=== PATIENT | female | born 1995 | race Caucasian/White ===

== ENCOUNTER 2020-06-16 20:15 | Emergency (ER) | payer OTHER ==
[~2020-06-16] VITALS: Ht 165.1 cm; Wt 117.9 kg
[2020-06-16] MEDS ORDERED: BUPIVACAINE HCL 0.25% 10ML MPF VIAL INJ ONE (21:00)
[2020-06-16] MEDS ORDERED: TETANUS/DIPHTHERIA TOX ADULT 0.5 ML SYR IM ONE (21:00)
[2020-06-16] MEDS ORDERED: BACITRACIN ZINC 0.9GM TP ONE (22:30)
[2020-06-16 22:58] VITALS: BP 121/72
== END 2020-06-16 23:19 | disposition home or self-care (01) ==
LOC: ER 20:46
DX: S61.211A Laceration without foreign body of left index finger without damage to nail, initial encounter (principal); W26.0XXA Contact with knife, initial encounter; Y93.G3 Activity, cooking and baking; Y92.000 Kitchen of unspecified non-institutional (private) residence as the place of occurrence of the external cause
CPT/HCPCS: 90471; 90714; 99283

== ENCOUNTER 2023-10-06 13:30 | Inpatient (IN) | payer BC, OTHER ==
[~2023-10-06] VITALS: Ht 167.6 cm; Wt 90.7 kg
[2023-10-06 13:57] LABS: BASOPHILS # (AUTO) 0.1 (0.0-0.1); BASOPHILS % 1.1 % (0.0-1.0); EOSINOPHILS # (AUTO) 0.1 (0.0-0.4); EOSINOPHILS % 1.4 % (0.0-6.0); HEMATOCRIT 42.9 % (34.2-44.1); HEMOGLOBIN 14.1 g/dL (12.0-16.0); LYMPHOCYTES # (AUTO) 1.2 (1.0-3.2); LYMPHOCYTES % 20.8 % (18.0-39.1); MEAN CORPUSCULAR HEMOGLOBIN 28.9 pg (28-32); MEAN CORPUSCULAR HGB CONC 32.9 g/dL (31-35); MEAN CORPUSCULAR VOLUME 87.9 fL (81-99); MONOCYTES # (AUTO) 0.6 (0.2-0.8); MONOCYTES % 10.5 % (4.4-11.3); NEUTROPHILS # (AUTO) 3.7 (2.1-6.9); PLATELET COUNT 273 x10e3/uL (140-360); RED BLOOD COUNT 4.88 x10e6/uL (3.6-5.1); RED CELL DISTRIBUTION WIDTH 12.9 % (11.7-14.4); WHITE BLOOD COUNT 5.63 x10e3/uL (4.8-10.8)
[2023-10-06] MEDS: SODIUM CHLORIDE 0.9% 1000ML 1,000 ML IV STA (14:01)
[2023-10-06] MEDS: DICYCLOMINE HCL 20 MG/2 ML VIAL IM ONE (14:02)
[2023-10-06] MEDS: ONDANSETRON HCL INJ 2MG/ML 2ML 2 MG/ML VIAL IV PRN (14:02)
[2023-10-06 14:08] LABS: AMORPHOUS SEDIMENT,URINE MANY (FEW); BACTERIA,URINE MODERATE /HPF; BILIRUBIN,URINE MODERATE (NEGATIVE); CLARITY,URINE TURBID (CLEAR); COLOR,URINE YELLOW (YELLOW); EPITHELIAL CELLS,URINE FEW /LPF; GLUCOSE, URINE NEGATIVE (NEGATIVE); KETONES,URINE NEGATIVE (NEGATIVE); LEUKOCYTE ESTERASE ,URINE NEGATIVE (NEGATIVE); NITRITE,URINE NEGATIVE (NEGATIVE); PH,URINE 8.5 (5 - 7); PROTEIN,URINE DIPSTICK NEGATIVE (NEGATIVE); RBC,URINE 0-5 /HPF (0-5); WBC,URINE (MAN) 0-5 /HPF (0-5)
[2023-10-06 14:17] LABS: ALBUMIN 4.4 g/dL (3.5-5.0); ALBUMIN/GLOBULIN RATIO 1.5 (0.8-2.0); ANION GAP 13.7 mmol/L (8-16); CALCIUM 9.1 mg/dL (8.4-10.2); CREATININE, SERUM 0.88 mg/dL (0.57-1.11); POTASSIUM 3.7 mmol/L (3.5-5.1); TOTAL PROTEIN 7.4 g/dL (6.5-8.1)
[2023-10-06] MEDS ORDERED: IOPAMIDOL 370 MG/ML 100 ML INFUS..BTL INJ ONE (15:38)
[2023-10-06] MEDS ORDERED: ONDANSETRON HCL INJ 2MG/ML 2ML 2 MG/ML VIAL IV PRN (17:45)
[2023-10-06] MEDS: SODIUM CHLORIDE 0.9% 1000ML 1,000 ML IV SCH (17:52)
[2023-10-06 18:03] VITALS: PULSE 80; RESP 17; TEMP 98.4
[2023-10-06 20:00] VITALS: BP 106/77; PULSE 62; RESP 18; TEMP 98.3; O2SAT 100
[2023-10-07] VITALS (9 sets, daily range): BP systolic 104–126; BP diastolic 57–77; PULSE 57–81; RESP 16–20; TEMP 98.1–98.8; O2SAT 95–100
[2023-10-07] MEDS: Morphine 4mg INJECTION 4 MG/ML INJ IV PRN (01:00)
[2023-10-07 08:03] LABS: BASOPHILS # (AUTO) 0.1 (0.0-0.1); EOSINOPHILS # (AUTO) 0.2 (0.0-0.4); HEMATOCRIT 37.6 % (34.2-44.1); HEMOGLOBIN 12.2 g/dL (12.0-16.0); LYMPHOCYTES # (AUTO) 1.7 (1.0-3.2); LYMPHOCYTES % 28.8 % (18.0-39.1); MEAN CORPUSCULAR HEMOGLOBIN 29.5 pg (28-32); MEAN CORPUSCULAR HGB CONC 32.4 g/dL (31-35); MEAN CORPUSCULAR VOLUME 90.8 fL (81-99); MONOCYTES # (AUTO) 0.5 (0.2-0.8); MONOCYTES % 7.8 % (4.4-11.3); NEUTROPHILS # (AUTO) 3.5 (2.1-6.9); NEUTROPHILS % 59.1 % (38.7-80.0); PLATELET COUNT 224 x10e3/uL (140-360); RED BLOOD COUNT 4.14 x10e6/uL (3.6-5.1); RED CELL DISTRIBUTION WIDTH 13.2 % (11.7-14.4); WHITE BLOOD COUNT 5.91 x10e3/uL (4.8-10.8)
[2023-10-07 08:24] LABS: ALBUMIN 3.6 g/dL (3.5-5.0); ALBUMIN/GLOBULIN RATIO 1.6 (0.8-2.0); ANION GAP 13.4 mmol/L (8-16); BILIRUBIN,TOTAL 1.5 mg/dL (0.2-1.2); CALCIUM 8.6 mg/dL (8.4-10.2); CREATININE, SERUM 0.75 mg/dL (0.57-1.11); TOTAL PROTEIN 5.8 g/dL (6.5-8.1)
[2023-10-07 08:30] LABS: POTASSIUM 3.4 mmol/L (3.5-5.1)
[2023-10-07] MEDS ORDERED: ACETAMINOPHEN/ASPIRIN/CAFFEINE 1 EA TAB PO PRN (11:45)
[2023-10-07] MEDS: POTASSIUM CHLORIDE 10MEQ EA PO ONE (12:27)
[2023-10-07] MEDS: ACETAMIN/BUTALBITAL/CAFFEINE TAB PO ONE (12:28)
[2023-10-07] MEDS: PROMETHAZINE 25MG/ NS 50ML (IV) IV PRN (18:19)
[2023-10-07] MEDS: ACETAMIN/BUTALBITAL/CAFFEINE TAB PO PRN (18:26)
[2023-10-08] VITALS: BP 102/74; PULSE 60; RESP 16; TEMP 98.4; O2SAT 100
[2023-10-08 04:00] VITALS: BP 107/55; PULSE 66; RESP 17; TEMP 98.2; O2SAT 100
[2023-10-08 08:05] LABS: ALBUMIN 3.6 g/dL (3.5-5.0); ALBUMIN/GLOBULIN RATIO 1.4 (0.8-2.0); ANION GAP 13.7 mmol/L (8-16); BILIRUBIN,TOTAL 0.8 mg/dL (0.2-1.2); CALCIUM 8.8 mg/dL (8.4-10.2); CREATININE, SERUM 0.74 mg/dL (0.57-1.11); POTASSIUM 3.7 mmol/L (3.5-5.1); TOTAL PROTEIN 6.1 g/dL (6.5-8.1)
[2023-10-08 08:13] VITALS: BP 118/68; PULSE 66; RESP 18; TEMP 98.1; O2SAT 100
[2023-10-08 11:33] VITALS: BP 106/51; PULSE 74; RESP 18; TEMP 97.9; O2SAT 100
[2023-10-08 16:07] VITALS: BP 113/60; PULSE 88; RESP 19; TEMP 97.9; O2SAT 100
[2023-10-08 20:00] VITALS: BP 117/44; PULSE 95; RESP 20; TEMP 98; O2SAT 93
[2023-10-09] VITALS (10 sets, daily range): BP systolic 99–125; BP diastolic 41–73; PULSE 60–96; RESP 16–20; TEMP 98.2–98.8; O2SAT 98–100
[2023-10-09] MEDS ORDERED: BUPIVACAINE HCL 0.5% INJ 30 ML VIAL INJ ONE (10:44)
[2023-10-09] MEDS ORDERED: MIDAZOLAM HCL 2 MG/2 ML VIAL ONE (11:45)
[2023-10-09] MEDS ORDERED: FENTANYL CITRATE/PF 100MCG/2 ML INJ ONE (11:45)
[2023-10-09] MEDS ORDERED: ESMOLOL HCL 100MG/10ML 10 MG/ML VIAL ONE (12:34)
[2023-10-09] MEDS ORDERED: PROPOFOL IV EMULSION 10 MG/ML 20 ML VIAL ONE (12:34)
[2023-10-09] MEDS ORDERED: ROCURONIUM BROMIDE 10 MG/ML 5ML VIAL IV ONE (12:34)
[2023-10-09] MEDS ORDERED: LIDOCAINE HCL 2% LOCAL INJ 5 ML SDV VIAL INJ ONE (12:34)
[2023-10-09] MEDS ORDERED: ONDANSETRON HCL INJ 2MG/ML 2ML 2 MG/ML VIAL ONE (12:34)
[2023-10-09] MEDS ORDERED: NEOSTIGMINE 1 MG/ML 10ML VIAL ONE (12:34)
[2023-10-09] MEDS ORDERED: SEVOFLURANE INHAL SOLN 250 ML PEN BTL ONE (12:34)
[2023-10-09] MEDS ORDERED: KETOROLAC TROMETHAMINE 30 MG/ML VIAL ONE (12:34)
[2023-10-09] MEDS ORDERED: DEXAMETHASONE SOD PHOS INJ 4 MG/ML SDV ONE (12:34)
[2023-10-09] MEDS ORDERED: GLYCOPYRROLATE INJ 0.2 MG/ML VIAL ONE (12:34)
[2023-10-09] MEDS ORDERED: ONDANSETRON HCL INJ 2MG/ML 2ML 2 MG/ML VIAL IV PRN (14:00)
[2023-10-09] MEDS: FENTANYL CITRATE/PF 100MCG/2 ML INJ ONE (14:06)
[2023-10-09] MEDS: SODIUM CHLORIDE 0.9% 1000ML 1,000 ML IV SCH (14:55)
[2023-10-09] MEDS: HYDROCODONE/APAP 5MG-325MG TAB PO PRN (16:35)
[2023-10-10] VITALS: BP 102/60; PULSE 78; RESP 20; TEMP 98; O2SAT 97
[2023-10-10 04:00] VITALS: BP 111/61; PULSE 60; RESP 20; TEMP 98.3; O2SAT 100
[2023-10-10 06:01] LABS: BASOPHILS % 0.2 % (0.0-1.0); EOSINOPHILS % 0.1 % (0.0-6.0); HEMATOCRIT 37.3 % (34.2-44.1); HEMOGLOBIN 12.1 g/dL (12.0-16.0); LYMPHOCYTES # (AUTO) 1.7 (1.0-3.2); LYMPHOCYTES % 14.6 % (18.0-39.1); MEAN CORPUSCULAR HEMOGLOBIN 29.4 pg (28-32); MEAN CORPUSCULAR HGB CONC 32.4 g/dL (31-35); MEAN CORPUSCULAR VOLUME 90.8 fL (81-99); MONOCYTES # (AUTO) 0.8 (0.2-0.8); MONOCYTES % 6.9 % (4.4-11.3); NEUTROPHILS # (AUTO) 8.9 (2.1-6.9); PLATELET COUNT 237 x10e3/uL (140-360); RED BLOOD COUNT 4.11 x10e6/uL (3.6-5.1); RED CELL DISTRIBUTION WIDTH 13.1 % (11.7-14.4); WHITE BLOOD COUNT 11.37 x10e3/uL (4.8-10.8)
[2023-10-10 06:26] LABS: ALBUMIN 3.7 g/dL (3.5-5.0); ALBUMIN/GLOBULIN RATIO 1.5 (0.8-2.0); ANION GAP 12.2 mmol/L (8-16); BILIRUBIN,TOTAL 0.5 mg/dL (0.2-1.2); CALCIUM 8.8 mg/dL (8.4-10.2); CREATININE, SERUM 0.71 mg/dL (0.57-1.11); MAGNESIUM 1.9 MG/DL (1.3-2.1); PHOSPHORUS 3.2 MG/DL (2.3-4.7); TOTAL PROTEIN 6.2 g/dL (6.5-8.1)
[2023-10-10 06:27] LABS: POTASSIUM 3.2 mmol/L (3.5-5.1)
[2023-10-10 07:33] VITALS: PULSE 69; RESP 16; O2SAT 97
[2023-10-10 08:32] VITALS: BP 105/57; PULSE 63; RESP 18; TEMP 97.5; O2SAT 100
[2023-10-10] MEDS: POTASSIUM CHLORIDE 10MEQ EA PO ONE (08:37)
[2023-10-10 09:00] VITALS: BP 105/57; PULSE 63; RESP 18; TEMP 97.5; O2SAT 100
[2023-10-10] MEDS: DOCUSATE SODIUM 100 MG CAP PO SCH (11:52)
[2023-10-10] MEDS: POLYETHYLENE GLYCOL 3350 17 GM PACK PO PRN (11:52)
[2023-10-10] MEDS: POLYETHYLENE GLYCOL 3350 17 GM PACK PO ONE (11:55)
[2023-10-10 12:00] VITALS: BP 111/56; PULSE 95; RESP 16; TEMP 99.3; O2SAT 100
[2023-10-10] MEDS ORDERED: COLACE100 M1 PO (12:05)
[2023-10-10] MEDS ORDERED: MIRALAX17 GM PO (12:05)
[2023-10-10] MEDS ORDERED: FIORICET 50-301 EACH PO (12:05)
[2023-10-10] MEDS ORDERED: ULTRAM 50MG50 MG PO (12:05)
[2023-10-10] MEDS ORDERED: ONDANSETRON ODT4 MG PO (12:05)
[2023-10-10] MEDS ORDERED: ONDANSETRON HCL 4 MG ORAL DISINTEGRATING TAB PO PRN (14:00)
[2023-10-10] MEDS ORDERED: PANTOPRAZOLE SOD 40 MG TABEC PO SCH (16:30)
== END 2023-10-10 13:55 | disposition home or self-care (01) | DRG 419 ==
LOC: ER 13:36 → ERHOLD 17:40 → MED/SURG2 20:02
PROVIDERS: ADMIT Internal Medicine; ATTEND Internal Medicine
PROC: 0FT44ZZ Resection of Gallbladder, Percutaneous Endoscopic Approach (ICD-10-PCS; principal; 2023-10-09 13:12)
DX: K80.01 Calculus of gallbladder with acute cholecystitis with obstruction (principal); K76.0 Fatty (change of) liver, not elsewhere classified; K21.9 Gastro-esophageal reflux disease without esophagitis; R11.2 Nausea with vomiting, unspecified; E87.6 Hypokalemia; G43.909 Migraine, unspecified, not intractable, without status migrainosus; N83.201 Unspecified ovarian cyst, right side; E66.9 Obesity, unspecified; Z68.32 Body mass index [BMI] 32.0-32.9, adult; Z98.84 Bariatric surgery status; Z11.52 Encounter for screening for COVID-19
CPT/HCPCS: 36415; 74177; 74181; 76705; 80053; 81001; 83690; 83735; 84100; 84702; 85025; 88304; 94799; 99284; J0690; J1100; J1885; J2001; J2250; J2270; J2405; J2470; J2550; J2710; J7030; Q9967; U0002